=== PATIENT | male | born 1970 | race Caucasian/White ===

== ENCOUNTER → 2016-10-30 | Outpatient (CLI) | payer BC ==
--- NOTE | ~2016-10-30 | ENPV ---
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 No evidence of thrombophlebitis is noted in right lower extremity in the deep and superficial veins of the legs. No evidence of deep vein thrombosis or superficial thrombophlebitis in the left lower contralateral groin. Prominent stripper apprentice veins with reflux noted in the right calf. Procedure Type of Study: Veins:Lower Extremities DVT Study, Lower Extremity Right. Indications for Study:Swelling of Limb and Pain in Limb. Appropriate Use Criteria:9 Patient Status:Routine. Study Location:Vascular Lab. Technical Quality:Adequate visualization. Velocities are measured in cm/s ; Diameters are measured in cm Right Lower Extremities DVT Study Measurements Right 2D and Doppler Measurements + + + + +------+------+ + !Location !Visualized!Compressibility!Thrombosis!Signal!Reflux!Reflux ! ! ! ! ! ! ! !(sec) ! + + + + +------+------+ + !GSV Thigh !Yes !Yes !None !Phasic! ! ! + + + + +------+------+ + !Common !Yes !Yes !None !Phasic! ! ! !Femoral ! ! ! ! ! ! ! + + + + +------+------+ + !Prox !Yes !Yes !None !Phasic! ! ! !Femoral ! ! ! ! ! ! ! + + + + +------+------+ + !Mid Femoral!Yes !Yes !None ! ! ! ! + + + + +------+------+ + !Dist !Yes !Yes !None !Phasic! ! ! !Femoral ! ! ! ! ! ! ! + + + + +------+------+ + !Popliteal !Yes !Yes !None !Phasic! ! ! + + + + +------+------+ + !Gastroc !Yes !Yes !None ! ! ! ! + + + + +------+------+ + !PTV !Yes !Yes !None ! ! ! ! + + + + +------+------+ + !Peroneal !Yes !Yes !None ! ! ! ! + + + + +------+------+ + Left Lower Extremities DVT Study Measurements Left 2D and Doppler Measurements + + + + +------+------+ + !Location !Visualized!Compressibility!Thrombosis!Signal!Reflux!Reflux ! ! ! ! ! ! ! !(sec) ! + + + + +------+------+ + !GSV Thigh !Yes !Yes !None !Phasic! ! ! + + + + +------+------+ + !Common !Yes !Yes !None ! ! ! ! !Femoral ! ! ! ! ! ! ! + + + + +------+------+ + Impressions Right Impression Prominent stripper apprentice veins noted in the right calf. Signature dtt: ROLANDO REESE dtd: 10/30/16 [facility] Physician Self Edit
== END | disposition disaster alternative care site (69) ==
LOC: GCAR 12:38
DX: L53.9 Erythematous condition, unspecified (principal); M79.89 Other specified soft tissue disorders

== ENCOUNTER → 2016-11-01 | Outpatient (CLI) | payer BC, OTHER | END | disposition disaster alternative care site (69) | LOC: LNHI 16:48 | DX: I73.9 Peripheral vascular disease, unspecified (principal); L02.415 Cutaneous abscess of right lower limb ==